=== PATIENT | female | born 1995 | race African-American/Black ===

== ENCOUNTER 2019-12-29 12:55 | Emergency (ER) | payer MEDICAID, OTHER ==
[~2019-12-29] VITALS: Ht 165.1 cm; Wt 65.8 kg
[~2019-12-29 12:55] MED LIST: DIPHENHYDRAMINE25 M1 ORAL; DOC-Q-LACE100 M1 ORAL; IBUPROFEN600 MG ORAL; KEFLEX500 MG ORAL; MIRALAX17 G2 ORAL; NKM; ONDANSETRON ODT4 MG ORAL; PREDNISONE20 MG ORAL
[2019-12-29 13:11] VITALS: BP 118/79
--- NOTE | 2019-12-29 13:11 | NUR ---
ED Nurse Note: Pt walked in to ED c/o generalized rash x2 days ago. Pt went to urgent care and was prescribed benadryl, pepcid, prednisone. Pt requests for an "allergy test". No SOB.
--- NOTE | 2019-12-29 13:35 | Emergency Room Report ---
History of Present Illness General Chief Complaint: Skin Rash/Abscess Source: Patient Present Illness HPI 24-year-old female presents to the emergency department complaining of generalized diffuse itchy rash that occurred 2 days ago and she went to the urgent care and was prescribed Benadryl, Pepcid and prednisone. Patient reports she did have some symptoms the day prior where she still had some swelling around her eyes. She denies history of allergies she denies sneezing, watery eyes or itchy throat. She denies history of allergies in her family. She reports it has been very hot at her house. She states that symptoms are mildly relieved with a cold shower but return immediately after. She states she has been taking her medications as directed and has 2 more days. Patient is requesting allergy testing. Patient denies swelling of the lips or tongue, difficulty breathing, shortness of breath or wheezing. She denies cough, fevers or chills. She denies blisters or sloughing of the skin. She denies new medications, creams, perfumes or body washes. No other aggravating or relieving factors at this time. Patient reports that her symptoms are well controlled with the previously prescribed medications. Denies or suspicion of . Allergies: Coded Allergies: No Known Allergies (Unverified , 07/24/12) COVID-19 Screening Contact w/high risk pt: No Experienced COVID-19 symptoms?: No COVID-19 Testing performed MERCHANDISE EXECUTION LEADER: No Patient History Past Medical History: see triage record Past Surgical History: none Pertinent Family History: none Last Menstrual Period: 12/14/19 Now: No Reviewed Nursing Documentation: PMH: Agreed; PSxH: Agreed Nursing Documentation-PMH Past Medical History: No Stated History Review of Systems All Other Systems: negative except mentioned in HPI Physical Exam Vital Signs Date Time Temp Pulse Resp B/P (MAP) Pulse Ox O2 Delivery O2 Flow Rate FiO2 12/29/19 13:07 98.1 69 19 118/79 (92) 98 Room Air Sp02 EP Interpretation: reviewed, normal General Appearance: no apparent distress, alert, GCS 15, non-toxic Head: normocephalic, atraumatic Eyes: bilateral eye normal inspection, bilateral eye PERRL ENT: hearing grossly normal, normal pharynx, normal voice, uvula midline, moist mucus membranes, other - no swelling of the lips or tongue Neck: full range of motion, other - no stridor Respiratory: chest non-tender, lungs clear, normal breath sounds, no respiratory distress, no accessory muscle use, no wheezing, speaking full sentences Cardiovascular #1: regular rate, rhythm, no edema, normal capillary refill Musculoskeletal: normal range of motion, gait/station normal, non-tender Neurologic: alert, motor strength/tone normal, oriented x3, sensory intact, responsive, speech normal Psychiatric: judgement/insight normal Skin: no rash - no rash at this time. Pt. w. pictures that appear to be diffuse urticarial type plaques. No blisters or vesicles, normal color Medical Decision Making PA Attestation Dr. Krishnamurthy is my supervising Physician whom patient management has been discussed with. Diagnostic Impression: Primary Impression: Rash and other nonspecific skin eruption ER Course 24-year-old female presents to the emergency department complaining of generalized diffuse itchy rash that occurred 2 days ago and she went to the urgent care and was prescribed Benadryl, Pepcid and prednisone. Patient reports she did have some symptoms the day prior where she still had some swelling around her eyes. She denies history of allergies she denies sneezing, watery eyes or itchy throat. She denies history of allergies in her family. She reports it has been very hot at her house. She states that symptoms are mildly relieved with a cold shower but return immediately after. She states she has been taking her medications as directed and has 2 more days. Patient is requesting allergy testing. Patient denies swelling of the lips or tongue, difficulty breathing, shortness of breath or wheezing. She denies cough, fevers or chills. She denies blisters or sloughing of the skin. She denies new medications, creams, perfumes or body washes. No other aggravating or relieving factors at this time. Patient reports that her symptoms are well controlled with the previously prescribed medications. Denies or suspicion of . Ddx considered but are not limited to cellulitis, scabies, shingles, varicella, dermatitis, urticaria, eczema, tinea, viral exanthem, SJS Vital signs: are WNL, pt. is afebrile H&PE are most consistent with no acute rash well-controlled with previously prescribed medications, patient produced pictures that appear to be diffuse urticarial type convalescent plaques. No evidence of acute impending airway compromise or anaphylaxis. Patient is nontoxic in appearance and in no acute distress. ORDERS: none required at this time, the diagnosis is clinical ED INTERVENTIONS: None required at this time. DISCHARGE: At this time pt. is stable for d/c to home. Will provide printed patient care instructions, and any necessary prescriptions. Care plan and follow up instructions have been discussed with the patient prior to discharge. Last Vital Signs Date Time Temp Pulse Resp B/P (MAP) Pulse Ox O2 Delivery O2 Flow Rate FiO2 12/29/19 13:11 98.1 69 19 118/79 98 Room Air Disposition: HOME, SELF-CARE Condition: Stable Patient Instructions: Rash Additional Instructions: Take medications as directed. Follow up with a Primary Care Provider in 3-5 days, even if your symptoms have resolved. - FOLLOW UP with [facility]ERGY CL[facility] for ALLERGY Testing. Return sooner to ED if new symptoms occur, or current symptoms become worse. - Please note that this Emergency Department Report was dictated using SVXRmedical technologist microbiology technology software, occasionally this can lead to erroneous entry secondary to interpretation by the dictation equipment. Amanda Gomez Dec 29, 2019 13:35
[2019-12-29 14:05] VITALS: BP 123/74
--- NOTE | 2019-12-29 14:05 | NUR ---
ED Nurse Note: Pt cleared by health care Provider for discharge. DC instructions/prescription were given and explained to pt and verbalized understanding of teachings. All medical deviecs such as ID band removed. Pt is AAO x4, ambulatory and left with all personal belongings.
== END 2019-12-29 14:05 | disposition home or self-care (01) ==
LOC: EMR 13:39
DX: R21 Rash and other nonspecific skin eruption (principal)
CPT/HCPCS: 99281

== ENCOUNTER 2020-01-19 11:07 | Emergency (ER) | payer MEDICAID ==
[~2020-01-19] VITALS: Ht 165.1 cm; Wt 61.2 kg
--- NOTE | 2020-01-19 11:30 | NUR ---
ED Nurse Note: Pt ambulated to ED d/t sore throat started today. Pt is AOx4, calm and cooperative, VSS, on RA, afebrile on triage.
[2020-01-19 11:45] VITALS: BP 114/77
--- NOTE | 2020-01-19 11:49 | Emergency Room Report ---
History of Present Illness General Chief Complaint: Sore Throat Source: Patient Present Illness HPI The patient presents with a sore throat for 1 day. She states it is somewhat painful to swallow. She denies hoarseness or difficulty breathing. She rates the pain 5/10 at this time. She denies any swelling of her glands in her neck. The patient was seen December 28 with hives. She was taking Benadryl, Pepcid and prednisone. It is unclear as to whether this was an allergic reaction. She states that the skin reaction and the swelling around her eyes resolved. At that time she did not have any shortness of breath or wheezing. She does not have these at this time also. The patient denies exposure to COVID-19 positive contacts. No fevers, chills, chest pain, palpitations, nausea, vomiting, diarrhea, dysuria, abdominal pain, shortness of breath, joint pain, visual changes, dizziness, headache. Last menstruation was January 08 and normal for her. She does not believe that she is at this time. Allergies: Coded Allergies: No Known Allergies (Unverified , 07/24/12) COVID-19 Screening Contact w/high risk pt: No Experienced COVID-19 symptoms?: No COVID-19 Testing performed CARGOMAN: No Patient History Past Medical History: see triage record Social History: Denies: smoking, alcohol use, drug use Social History Narrative Professional dancer Last Menstrual Period: 01/09/20 Reviewed Nursing Documentation: PMH: Agreed; PSxH: Agreed Nursing Documentation-PMH Past Medical History: No Stated History Review of Systems All Other Systems: negative except mentioned in HPI Physical Exam Vital Signs Date Time Temp Pulse Resp B/P (MAP) Pulse Ox O2 Delivery O2 Flow Rate FiO2 01/19/20 11:23 98.2 88 19 114/77 (89) 100 Room Air Sp02 EP Interpretation: reviewed, normal General Appearance: well appearing, no apparent distress, GCS 15, non-toxic Head: normocephalic Eyes: bilateral eye normal inspection, bilateral eye PERRL ENT: moist mucus membranes, tonsillar swelling, pharyngeal erythema, other - No exudates or nasal congestion Respiratory: lungs clear, normal breath sounds Cardiovascular #1: regular rate, rhythm Cardiovascular #2: 2+ radial (R) Gastrointestinal: normal inspection Musculoskeletal: gait/station normal Neurologic: alert, grossly normal Psychiatric: mood/affect normal Skin: normal color, no rash, other - No hives Lymphatic: no adenopathy Medical Decision Making Diagnostic Impression: Primary Impression: Uvulitis ER Course Patient presents with sore throat for 1 day without fevers or chills. Exam reveals edematous and erythematous uvula and pharynx. Differential includes pharyngitis, uvulitis, other viral pharyngitis amongst others. Exam is inconsistent with strep infection based on the exam of the pharynx and also lack of cervical adenopathy. Based on the history COVID-19 is less likely. There is no respiratory compromise at this time. Is there is no rash previous presentation for hives does not seem to be related. The diagnosis is clinical. Discussed treatment plan with patient and the need for outpatient follow-up. Patient stable for outpatient observation and treatment. Last Vital Signs Date Time Temp Pulse Resp B/P (MAP) Pulse Ox O2 Delivery O2 Flow Rate FiO2 01/19/20 11:56 98.2 19 114/77 100 Room Air 01/19/20 11:23 88 Status: unchanged Disposition: HOME, SELF-CARE Condition: Stable Scripts Diphenhydramine Hcl* (BENADRYL*) 25 Mg Capsule 25 MG ORAL Q6H PRN for swelling, #10 CAP Prov: Jose Gipson MD 01/19/20 Lidocaine HCl 2% Viscous (Lidocaine HCl 2% Viscous) 100 Ml Solution 10 ML ORAL QID, #60 ML 1 Refill Prov: Jose Gipson MD 01/19/20 Acetaminophen (Tylenol) 325 Mg Tablet 650 MG ORAL Q6H PRN for Prn Pain/Headache/Temp > 101, #20 TAB 0 Refills Prov: Jose Gipson MD 01/19/20 Jose Gipson MD Jan 19, 2020 11:49
[2020-01-19] MEDS ORDERED: TYLENOL325 MG ORAL (11:52)
[2020-01-19] MEDS ORDERED: BENADRYL25 MG ORAL (11:52)
[2020-01-19] MEDS ORDERED: LIDOCAINE VISC100 ML ORAL (11:52)
[2020-01-19 11:56] VITALS: BP 114/77
--- NOTE | 2020-01-19 11:58 | NUR ---
ER DISCHARGE NOTE: Patient is cleared to be discharged per ERMD, pt is aox4, on room air, with stable vital signs. pt was given dc, prescription and follow up instructions. pt was able to verbalize understanding of all teachings. pt id band removed without complications. pt is able to ambulate with steady gait. pt took all belongings
== END 2020-01-19 11:58 | disposition home or self-care (01) ==
LOC: EMR 11:55
DX: K12.2 Cellulitis and abscess of mouth (principal)
CPT/HCPCS: 99282